=== PATIENT | female | born 1960 | race Two or more races ===

== ENCOUNTER 2020-07-04 15:46 | Outpatient (REF) | payer OTHER, SELFPAY ==
--- NOTE | 2020-07-04 | US_ITS ---
EXAMINATION: US RETROPERITONEAL LIMITED (RENAL ONLY) CLINICAL INFORMATION: Abnormal kidney function tests. COMPARISON: None TECHNIQUE: Grayscale and Doppler images of the right and left kidney were obtained. FINDINGS: RIGHT KIDNEY: 14.2 x 4.6 x 5.8 cm (SAG x AP x TRV). The kidney is normal in size, contour, and echogenicity. Renal cortical thickness is normal. No hydronephrosis or nephrolithiasis. Simple-appearing midpole parapelvic cyst measuring 2.0 cm. LEFT KIDNEY: 13.4 x 4.1 x 4.4 cm (SAG x AP x TRV). The kidney is normal in size, contour, and echogenicity. Renal cortical thickness is normal. No calculi or focal parenchymal lesions. No hydronephrosis. US/US renal BI IMPRESSION: No hydronephrosis or nephrolithiasis. Simple right midpole renal cyst measuring 2.0 cm. No additional renal parenchymal lesion.
== END 2020-07-04 15:47 | disposition home or self-care (01) ==
LOC: HO.US 15:46
PROVIDERS: Visit Provider Internal Medicine
DX: R94.4 Abnormal results of kidney function studies (principal)
CPT/HCPCS: 76775

== ENCOUNTER 2020-09-09 09:45 | Outpatient (REF) | payer OTHER, SELFPAY ==
[2020-09-09 11:07] LABS: Estimated Average Glucose 160 mg/dL; Hemoglobin A1c % 7.2 %
[2020-09-09 11:31] LABS: Alanine Aminotransferase 23 U/L (0-31); Albumin Level 4.2 g/dL (3.5-5.0); Alkaline Phosphatase 83 U/L (39-117); Anion Gap 14 (12-20); Aspartate Amino Transferase 18 U/L (5-31); Bilirubin Direct 0.7 mg/dL (0.0-0.5); Blood Urea Nitrogen 21 mg/dL (9-16); Calcium 8.9 mg/dL (8.4-10.2); Carbon Dioxide 26 mmol/L (22-29); Chloride 104 mmol/L (96-108); Cholesterol 124 mg/dL; Estimated Glomerular Filt Rate > 60; Glucose Random 202 mg/dL (60-115); HDL Cholesterol 51 mg/dL; LDL Cholesterol Calculated 65 mg/dl; Potassium 4.7 mmol/L (3.3-5.1); Sodium 139 mmol/L (135-145); Total Protein 6.7 g/dL (6.5-8.0); Triglycerides 44 mg/dL
[2020-09-09 11:50] LABS: Vitamin D 25-OH Total 13.2 ng/mL (>30)
== END 2020-09-09 09:46 | disposition home or self-care (01) ==
LOC: HO.LAB 09:45
PROVIDERS: PCP Student in an Organized Health Care Education/Training Program; Visit Provider Student in an Organized Health Care Education/Training Program
DX: E11.9 Type 2 diabetes mellitus without complications (principal); E55.9 Vitamin D deficiency, unspecified
CPT/HCPCS: 36415; 80048; 80061; 80076; 82306; 83036

== ENCOUNTER 2020-10-26 15:40 | Outpatient (REF) | payer OTHER, SELFPAY ==
--- NOTE | ~2020-10-26 | MM_ITS ---
EXAMINATION: MM SCREENING DIGITAL BREAST TOMOSYNTHESIS, BILATERAL CLINICAL INFORMATION: Screening. Asymptomatic. The lifetime risk of breast cancer based on the Tyrer-Cuzick Model is 5.4%. COMPARISON: Mammography: November 10, 2017 and December 17, 2011 TECHNIQUE: Digital breast tomosynthesis is performed in both the craniocaudal and mediolateral oblique views along with computer-aided detection (CAD). Synthesized 2D images are generated from the tomosynthesis. FINDINGS: The breasts are extremely dense, which lowers the sensitivity of mammography (ACR BI-RADS breast composition Category d). There are no significant masses, abnormal calcifications, or other abnormalities. MM/MM tomosynthesis screening BI IMPRESSION: There are no significant changes from prior study. ASSESSMENT: BI-RADS 1: Negative RECOMMENDATION: Routine annual mammography screening. This patient's information was entered into a reminder system with a target due date for their next mammogram.
== END 2020-10-26 15:41 | disposition home or self-care (01) ==
LOC: HO.MAMMO 15:40
PROVIDERS: Visit Provider Student in an Organized Health Care Education/Training Program
DX: Z12.31 Encounter for screening mammogram for malignant neoplasm of breast (principal)
CPT/HCPCS: 77063; 77067

== ENCOUNTER 2022-01-28 16:48 | Outpatient (REF) | payer MEDICAID, SELFPAY ==
--- NOTE | ~2022-01-28 | XR_ITS ---
EXAMINATION: XR FOOT, RIGHT CLINICAL INFORMATION: Foot injury. COMPARISON: None TECHNIQUE: AP, lateral, and oblique views of the right foot. FINDINGS: There is moderate soft tissue swelling fifth MTP joint and dorsal proximal foot. No bony erosive changes, fracture or dislocation. The rest of the foot is unremarkable. The ankle mortise and subtalar joints are normal. There are small calcaneal heel and moderate retrocalcaneal enthesophytes. XR/XR foot RT min 3V IMPRESSION: Moderate soft tissue swelling lateral fifth MTP joint and dorsal proximal foot. No acute fracture or bony erosive changes. Small calcaneal heel and moderate retrocalcaneal enthesophytes.
== END 2022-01-28 16:49 | disposition home or self-care (01) ==
LOC: HO.XRAY 16:48
PROVIDERS: PCP Student in an Organized Health Care Education/Training Program; Visit Provider Internal Medicine
DX: M79.671 Pain in right foot (principal)
CPT/HCPCS: 73630

== ENCOUNTER 2022-06-11 14:28 | Outpatient (REF) | payer MEDICAID, SELFPAY ==
--- NOTE | ~2022-06-11 | XR_ITS ---
EXAMINATION: XR HIP, LEFT CLINICAL INFORMATION: Left hip pain. COMPARISON: None TECHNIQUE: Frontal view pelvis is performed along with AP and frog-lateral projections left hip. FINDINGS: There are degenerative disc changes lower lumbar spine with disc narrowing and vertebral spurring L3-S1. There are mild degenerative changes SI joints and mild osteitis pubis. Bony pelvis shows no fracture or destructive process. The right hip has 3 screws and there are degenerative changes right hip with spurring acetabular rim and base femoral head. Left hip shows no fracture, dislocation, destructive process. No definite joint narrowing and no visible erosive change or chondrocalcinosis. There is a benign-appearing sclerotic lesion femoral neck possibly bone island or old enchondroma. XR/XR hip LT w PEL1V IMPRESSION: -Left hip: No definite joint narrowing or erosive change. -Benign-appearing sclerotic lesion left femoral neck possibly bone island or old enchondroma. -Degenerative disc changes lower lumbar spine. Mild osteitis pubis.
== END 2022-06-11 14:29 | disposition home or self-care (01) ==
LOC: HO.XRAY 14:28
PROVIDERS: PCP Internal Medicine; Visit Provider Internal Medicine
DX: M25.552 Pain in left hip (principal)
CPT/HCPCS: 73502

== ENCOUNTER 2023-03-20 10:42 | Outpatient (REF) | payer MEDICAID, SELFPAY ==
[2023-03-20 14:55] LABS: Vitamin D 25-OH Total 27.2 ng/mL (>30)
[2023-03-20 15:03] LABS: Anion Gap 12 (12-20)
[2023-03-20 15:08] LABS: Alanine Aminotransferase 25 U/L (0-31); Albumin Level 4.2 g/dL (3.5-5.0); Alkaline Phosphatase 103 U/L (39-117); Aspartate Amino Transferase 17 U/L (5-31); Bilirubin Direct 0.5 mg/dL (0.0-0.5); Bilirubin Total 1.6 mg/dL (0.0-1.0); Blood Urea Nitrogen 13 mg/dL (9-16); Calcium 9.6 mg/dL (8.4-10.2); Carbon Dioxide 28 mmol/L (22-29); Chloride 105 mmol/L (96-108); Cholesterol 126 mg/dL (<200); Estimated Glomerular Filt Rate > 60; Glucose Fasting 138 mg/dL (60-99); HDL Cholesterol 37 mg/dL (>40); LDL Cholesterol Calculated 67 mg/dL (<100); Potassium 4.9 mmol/L (3.3-5.1); Sodium 140 mmol/L (135-145); Total Protein 7.1 g/dL (6.5-8.0); Triglycerides 111 mg/dL (<150)
[2023-03-20 15:18] LABS: Microalbum/Creatinine Ratio Ur 10.8 ug/mg cr (<30)
== END 2023-03-20 10:43 | disposition home or self-care (01) ==
LOC: HO.CHCLDS 10:42
PROVIDERS: Visit Provider Student in an Organized Health Care Education/Training Program
DX: E11.9 Type 2 diabetes mellitus without complications (principal); E55.9 Vitamin D deficiency, unspecified
CPT/HCPCS: 36415; 80048; 80061; 80076; 82043; 82306; 82570

== ENCOUNTER 2023-12-08 12:08 | Outpatient (REF) | payer MEDICARE, MEDICAID, SELFPAY ==
[2023-12-08 15:57] LABS: Uric Acid 5.9 mg/dL (2.4-5.7)
[2023-12-08 16:06] LABS: TSH reflex Free T4 1.19 uIU/mL (0.32-4.0); Vitamin D 25-OH Total 33.9 ng/mL (>30)
[2023-12-08 16:21] LABS: Folate 11.1 ng/mL (> or = 4.0); Vitamin B12 511 pg/mL (200-900)
== END 2023-12-08 12:09 | disposition home or self-care (01) ==
LOC: HO.HHCL 12:08
PROVIDERS: Visit Provider Student in an Organized Health Care Education/Training Program
DX: L63.9 Alopecia areata, unspecified (principal); M25.572 Pain in left ankle and joints of left foot
CPT/HCPCS: 36415; 82306; 82607; 82746; 84443; 84550

== ENCOUNTER 2023-12-08 12:48 | Outpatient (REF) | payer OTHER, MEDICAID, SELFPAY ==
--- NOTE | ~2023-12-08 | XR_ITS ---
EXAMINATION: XR ANKLE, RIGHT CLINICAL INFORMATION: Right ankle pain COMPARISON: X-ray right foot on 01/28/2022 TECHNIQUE: AP, lateral, and mortise views of the right ankle. FINDINGS: BONES: Bony structures are intact. Small dorsal calcaneal spur is present. There is no focal bone destruction or periosteal reaction seen. JOINTS: Alignment of joints is normal. SOFT TISSUE: Soft tissue is normal. No radiopaque foreign body or abnormal air collection is seen. XR/XR ankle RT min 3V IMPRESSION: 1. Unchanged small dorsal calcaneal spur. 2. No fracture or dislocation or signs of osteomyelitis are found.
== END 2023-12-08 12:49 | disposition home or self-care (01) ==
LOC: HO.HMGCX 12:48
PROVIDERS: PCP Student in an Organized Health Care Education/Training Program; Visit Provider Student in an Organized Health Care Education/Training Program
DX: M25.571 Pain in right ankle and joints of right foot (principal)
CPT/HCPCS: 73610

== ENCOUNTER 2024-05-20 08:54 | Outpatient (REF) | payer MEDICARE, MEDICAID, SELFPAY | END 2024-05-20 08:55 | disposition home or self-care (01) | LOC: HO.HOSX 08:54 | PROVIDERS: Visit Provider Physician Assistant | DX: Z13.89 Encounter for screening for other disorder (principal) ==

== ENCOUNTER 2025-05-16 14:26 | Outpatient (REF) | payer OTHER, SELFPAY ==
--- OUTSIDE RECORDS SUMMARY | 2024-09-28 09:00 | XMS_ITS ---
Author Organization [facility] Address [address] [facility] [place] [address] Care Team Providers Care Learning And Development Officer Name Role Phone Amanda Le Primary Care Provider Michelle Galvez [phone] Medications Medication SIG (Take, Route, Fr equency, Duration) Notes Start Date End Date Status Losartan Potassium A ctive Glimepiride Active Atorvastatin Calcium Active Lantus Active Trulicity Active Gabapentin Active metFORMIN HCl Active Encounters Encounter Location Date Provider Diagnosis [address] [address] 09/28/2024 Michelle Pedro Plan Of Treatment No Information Progress Notes * Long CHANELOB:1960 (64 yo F)Acc No.[id number]:09/28/2024 Progress Notes Patient: Vipul PATDemetrius Geovanna Provider: Bunny Pedro DPM :1960 A ge:63 Y S ex:Female Date:09/28/2024 Address:[address], [place], [id number] Pcp:Amanda Le Subjective: * Chief Complaints: * * Medical History: D iabetic, Joint implants/screws. * Surgical History: h ip sx 2003. * Medications: T aking Lantus , Taking Trulicity , Taking Losartan Potassium , Taking Glimepiride , Taking Atorvastatin Calcium , Taking Gabapentin , Taking metFORMIN HCl Objective: * Vitals: Assessment: Plan: * Treatment: * Images: * The named appointment provid er may or may not be the originator of this progress note, and it is not deemed complete until electronically signed by the appointment provider. Sign off status: Pending * Provider: Bunny Pedro DPM Date: 0 09/28/2024 Generated for Herbert Stephenson/Zaira on: 1 07/17/2024 08:51 PM EST
[2025-05-16 19:06] LABS: Leukocytes Stool Qualitative NEGATIVE (NEGATIVE)
--- OUTSIDE RECORDS SUMMARY | 2025-05-16 20:51 | XMS_ITS | Encounter Summary ---
Author Organization [employer] Address [address] [place] [address] [address] [place] [address] Care Team Providers Care Dungeon Master Name Role Phone Amanda Le MD Primary Care Provider [phone] Adore Oleary CNP Primary Care Provider [phone] Reason for Visit * Reason Onset Date Comments Nurse Triage 03/02/2024 Encounter Details Date Type Department Care Team ([facility] [address] Contact Info) Description 03/02/2024 Telephone [facility] [address] [place], [place] [phone] Amanda Le MD [address] [place], [place] [phone] Nurse Triage Social History Tobacco Use Types Packs/Day Years Used Date Smoking Tobacco: Never Smokeless Tobacco: Never Alcohol Use Standard Drinks/Week Comments Never 0 (1 standard drink = 0.6 oz pur e alcohol) Depression Answer Date Recorded Patient Health Questionnaire-9 Score 0 06/11/2022 Housing Stability Answer Date Recorded What is your housing situation today? I have darrel alcantar 11/10/[address] you li ve. Do you have problems with any of the following? None of the above 11/10/2023 Food Insecurity Answer Date Recorded Within the past 12 months, y ou worried that your food would run out before you got money to buy more: Never True 11/10/2023 Within the past 12 months,th e food you bought just didn't last and you didn't have enough money to get more: Never True 03/2024 Transportation Answer Date Recorded In the past 12 months, has l ack of transportation kept you from medical appts, meetings, work or from getting things needed for daily living? No 11/10/2023 Utilities Answer Date Recorded In the past 12 months, has t he electric, gas, oil or water company threatened to shut off services in your home? No 11/10/2023 Depression Answer Date Recorded Patient Health Questionnaire-2 Score 0 06/11/2022 Comments Unknown Sex and Gender Information Value Date Recorded Sex Assigned at Female 04/01/2022 10:22 AM EDT Legal Sex Female 10:22 AM EDT Gender Identity Female 04/01/2022 10:22 AM EDT Sexual Orientation Straight 04/01/2022 10 :22 AM EDT documented as of this encounter Miscellaneous Notes * Telephone Encounter - Kelsi Rucker RN - 03/02/2024 12:35 PM EDT Triage call with Ellis Foil Spooler ID [id number]. Pt daughter , Zeenat, dhaval, (HIPAA) no need forinterpreter. Foil Spooler is let go and new call to Pt is returned. Pt daughter reports that Pt hashad an odd skin miguel above wrist area, left forearm. Skin area described as several small spots that have been there for week or so. Connell are not itchy or painful, smooth to touch and looks like dried blood but, it isn't. Denies that it is a bruise or injury. Daughter is requesting for PCP to see Pt. ASK apt with PCP 03/05/24 @ 845am. Insurance is verified as active prior to booking. Daughteragrees with disposition. Protocol Used: Skin Lesion - Moles or Growths (Adult) Protocol-Based Disposition: See in Office or Video Visit within 3 Days Video visit not offered Positive Triage Question: * Patient wants to be seen * All higher-acuity triage questions were negative Care Advice Discussed: * Reasons To Call Back - Fever or pain occurs - Any change in a skin growth or mole - You become worse * Telephone Encounter - Becky Turner - 03/02/2024 12:14 PM EDT Symptom: Skin Spot Outcome: Schedule an appointment to be seen within 3 days Reason: Caller denied all higher acuity questions The caller accepted this outcome. documented in this encounter Plan of Treatment Not on file documented as of this encounter Visit Diagnoses Not on filedocumented in this encounter Additional Health Concerns Assessment Noted Time PHQ-9 Depression Total Score: 0 06/11/19 23 1:43 PM EST documented as of this encounter Care Teams Dungeon Master Relationship Specialty Start Date End Date Amanda Le MD [address] [place] [phone] PCP - General Family Medicine 11/02/19 03/28/25 Adore Oleary CNP [address] [place] [id number] PCP - General Family Medicine 03/29/25 documented as of this encounter
--- OUTSIDE RECORDS SUMMARY | 2025-05-16 20:51 | XMS_ITS | Encounter Summary ---
Author Organization [employer] Address [address] [place] [address] [address] [place] [address] Care Team Providers Care Shoemaking Cutter Name Role Phone Amanda Le MD Primary Care Provider Adore Oleary CNP Primary Care Provider [phone] Reason for Visit * Reason Comments Med Refill Encounter Details Date Type Department Care Team ([facility] st Contact Info) Description 12/09/2023 Refill [facility] [address] [place], [place] [phone] Amanda Le MD [address] [place] [address] Type 2 diabetes mellitus with hyperglycemia, without long-term current use of insulin ([facility]); Type 2 diabetes mellitus without complication, without long-term current use of insulin ([facility]) Social History Tobacco Use Types Packs/Day Years [...] AM EDT documented as of this encounter Plan of Treatment Not on file documented as of this encounter Visit Diagnoses Diagnosis Type 2 diabetes mellitus with hyperglycemia, without long-term current use of insulin (HCC) Type 2 diabetes mellitus without complication, without long-term current use of insulin (HCC) documented in this encounter Additional Health Concerns Assessment Noted Time PHQ-9 Depression Total Score: 0 06/11/19 23 1:43 PM EST documented as of this encounter Care Teams Shoemaking Cutter Relationship Specialty Start Date End Date Amanda Le MD [address] [place] [phone] PCP - General Family Medicine 11/02/19 03/28/25 Adore Oleary CNP [address] [place] [address] PCP - General Family Medicine 03/29/25 documented as of this encounter
--- OUTSIDE RECORDS SUMMARY | 2025-05-16 20:51 | XMS_ITS ---
Author Name Sarina Avila NP Address [address] [place] [address] Phone [phone] Organization [facility] Care Team Providers Care Manager Compliance Name Role Phone Sarina Avila Unavailable [phone] Unavailable Unavailable [phone] NIRAV OLEA Unavailable [phone] Reason for Referral Not Available Allergies, adverse reactions, alerts Allergen Type Reaction Severity Status Onset Date Lisinopril Allergy to substance (disorder) Cough Unknown Active N/A History of medication use Medication Class Instructions Start Date End Date Trulicity 3 mg/0.5ML Solution Pen-injector INJECT ONE PEN (=3MG) SUBCUTANEOUSLY ONCE A WEEK 2022-07-02 No Data Available metFORMIN 1000 mg Tab TAKE 1 TABLET BY M OUTH WITH BREAKFAST AND WITH EVENING MEAL 2022-06-28 2023-05-15 Lantus SoloStar 100 UNIT/ML Solution Pen-injector INJECT 50 UNIT BY SUBCUTANEOUS ROUTE EVERY BEDTIME 2022-03-15 No Data Available FREESTYLE LITE TEST STRIP CHECK BLOOD PADGETT GAR ONCE EVERY DAY 2022-07-31 No Data Available BD UF ORIG PEN NDL 12.3NEX17O USE 1 NEEDLE DAILY 2022-07-29 No Data Available Gabapentin 100 mg Cap TAKE 1 CAPSULE BY MOUTH EVERY DAY 2022-12-25 No Data Available MELATONIN 5 MG TABLET TAKE 1 TABLET BY M OUTH AT BEDTIME 2023-01-25 2023-05-15 Atorvastatin Calcium 40 mg Tab TAKE 1 TABLET BY MOUTH EVERY DAY 2022-12-05 No Data Available Diclofenac Sodium 1 % Gel APPLY TOPICALL Y TWICE A DAY NEEDED FOR PAIN 2023-03-04 No Data Available FREESTYLE 28G LANCETS USE EVERY MORNING DIRECTED 2022-09-02 No Data Available Glimepiride 4 mg Tab TAKE 1 TABLET BY MO UTH TWICE A DAY 2022-06-28 No Data Available Diclofenac Sodium 1 % Gel 4 grams topica lly to affected area 4 times per day PRN 2023-05-13 2025-03-22 metFORMIN 1000 mg Tab 1 tablet orally twice daily 2022 No Data Available Lisinopril 20 mg Tab Take 1 tablet orally daily 2022-06-2025-03-22 Ibuprofen 200 mg Tab Take 3 tab q8h PRN for pain 05-15 No Data Available FreeStyle Obie 2 Plus Sensor Miscellaneous 1 EACH EVERY 14 (FOURTEEN) DAYS. 2024-10-05 No Data Available Losartan Potassium 25 mg Tab TAKE 1 TABL ET (25 MG) BY MOUTH ONCE PER DAY. 2024-08-20 No Data Available traZODone 50 mg Tab TAKE 1 TABLET BY BERNARD TH AT BEDTIME 2024-08-20 2025-03-22 Allopurinol 100 mg Tab TAKE 1 TABLET BY MOUTH ONCE DAILY 2024-11-29 2025-03-22 Amoxicillin 250 mg Cap TAKE 1 CAPSULE EV SAVAGE 8 HOURS UNTIL FINISHED 2025-02-19 No Data Available Embecta Pen Needle Ultrafine 29G X 12.7MM Miscellaneous USE 1 NEEDLE DAILY 2024-11-09 No Data Avail able Problem List Problem Status Onset Date Resolved Date Synopsis Solitary pulmonary nodule Active 2023-05-13 2025-03-22 Continue routine follow up for surveillance Vitamin D deficiency Active 2023-05-13 N/A Has taken vitamin D supplementation in the pastNot taking currentlyContinue routine follow up HTN (hypertension) Active 2023-05-15 N/A Taking losartanBP monitoring at home: YesFollows with cardiology: No Recommend medication compliance, heart healthy diet, monitor blood pressure routinely and notify provider with any high or low readings. Recommend to not smoke. Other problems related to medical facilities and other health care Active 2023-11-27 N/A DM CONT INGENCY PLANMember to call for the following symptoms: Blood sugar <70/ Blood sugar >300/ More thirsty than usual/ Urinating more than usual/ Confusion or change in behavior/ Increased redness of wound/ Wound smells different/ Chest painPlanned intervention: Encourage adequate water intake/ Elevate legs/ Limit high-sugar and high-carbohydrate foods/ Go for a walk. Type 2 diabetes mellitus with hyperlipidemia, Type 2 diabetes mellitus with diabetic neuropathy Active 2023-05-13 N/A Taking glime piride, lantus, metformin, trulicityStatin: atorvastatin Neuropathy: gabapentinRecent HgA1c 6.5 on 11/26/23 with PCP. HbA1c 6.9 noted on 07/29/2024 in outside CareFollows with PCP Bilateral shoulder pain Active 2023-05-15 N/A U sed to receive corticosteroid injections but it caused spikes in her blood sugar so she stopped. Difficulty with mobility raising arms above head. Stable. Follow-up ortho Cervical cancer screening declined Active 2023-11-27 N/A 2019, pt decl ined ref, educated. Recommended Papsmear - patient will follow-up with a photographic platemaker Insomnia Active 2025-03-22 N/A No meds at thi s time. Trial of trazodone but too strong and gave her a headache. Screening for breast cancer Active 2025-03-22 N/A Needs referral f or mammogram. Mammogram ordered. [address] [place] [id number] Screening for colon cancer Active 2025-03-22 N/A Due for colonosc opy. Needs referral for colonoscopy. Encounters Encounters Type Facility Date of Service Diagnosis/Co mplaint New patient, 30-44min 1 stable chronic or 2 minor; add modifier 95 for video, modifier 93 for phone [facility], ([place]) 05/15/2023 Type 2 diabetes mellitus wit h diabetic neuropathy, unspecifiedType 2 diabetes mellitus with other specified complicationHyperlipidemia, unspecifiedSolitary pulmonary noduleVitamin D deficiency, unspecifiedEssential (primary) hypertensionPain in right shoulderPain in left shoulder New patient, 30-44min 1 stable chronic or 2 minor; add modifier 95 for video, modifier 93 for phone [facility], [place] 05/15/2023 New patient, 30-44min 1 stable chronic or 2 minor; add modifier 95 for video, modifier 93 for phone [facility], [place] 05/15/2023 New patient, 30-44min 1 stable chronic or 2 minor; add modifier 95 for video, modifier 93 for phone [facility], [place] 05/15/2023 New patient, 30-44min 1 stable chronic or 2 minor; add modifier 95 for video, modifier 93 for phone [facility], [place] 05/15/2023 New patient, 30-44min 1 stable chronic or 2 minor; add modifier 95 for video, modifier 93 for phone [facility], [place]) 05/15/2023 New patient, 30-44min 1 stable chronic or 2 minor; add modifier 95 for video, modifier 93 for phone [facility] ([place]) 05/15/2023 Estab. patient 30-39min; chronic exacerbation, 2 stable chronic or 1 acute illness add add modifier 95 for video, (do not use for phone, instead use [id number]) [facility], [place]) 11/27/2023 Solitary pulmonary noduleTyp e 2 diabetes mellitus with other specified complicationHyperlipidemia, unspecifiedVitamin D deficiency, unspecifiedType 2 diabetes mellitus with diabetic neuropathy, unspecifiedOther problems related to medical facilities and other health careLong term (current) use of oral hypoglycemic drugsLong term (current) use of insulinEssential (primary) hypertensionPain in right shoulderPain in left shoulderOther specified counseling Estab. patient 30-39min; chronic exacerbation, 2 stable chronic or 1 acute illness add add modifier 95 for video, (do not use for phone, instead use [id number]) [facility], [place] 11/27/2023 Estab. patient 30-39min; chronic exacerbation, 2 stable chronic or 1 acute illness add add modifier 95 for video, (do not use for phone, instead use [id number]) [facility] ([place]) 11/27/2023 Estab. patient 30-39min; chronic exacerbation, 2 stable chronic or 1 acute illness add add modifier 95 for video, (do not use for phone, instead use [id number]) [facility], [place] 11/27/2023 Estab. patient 30-39min; chronic exacerbation, 2 stable chronic or 1 acute illness add add modifier 95 for video, (do not use for phone, instead use [id number]) [facility] ([place]) 11/27/2023 Estab. patient 30-39min; chronic exacerbation, 2 stable chronic or 1 acute illness add add modifier 95 for video, (do not use for phone, instead use [id number]) [facility], [place] 11/27/2023 Estab. patient 30-39min; chronic exacerbation, 2 stable chronic or 1 acute illness add add modifier 95 for video, (do not use for phone, instead use [id number]) [facility], ([place]) 11/27/2023 Estab. patient 30-39min; chronic exacerbation, 2 stable chronic or 1 acute illness add add modifier 95 for video, (do not use for phone, instead use [id number]) [facility], ([place]) 11/27/2023 Estab. patient 30-39min; chronic exacerbation, 2 stable chronic or 1 acute illness add add modifier 95 for video, (do not use for phone, instead use [id number]) [facility], ([place] 11/27/2023 Estab. patient 30-39min; chronic exacerbation, 2 stable chronic or 1 acute illness add add modifier 95 for video, (do not use for phone, instead use [id number]) [facility], ([place] 11/27/2023 Estab. patient 30-39min; chronic exacerbation, 2 stable chronic or 1 acute illness add add modifier 95 for video, (do not use for phone, instead use [id number]) [facility], ([place] 11/27/2023 Estab. patient 10-29min; 1 minor problem; add add modifier 95 for video, modifier 93 for phone [facility], [place] 03/22/2025 Type 2 diabetes mellitus wit h diabetic neuropathy, unspecifiedType 2 diabetes mellitus with other specified complicationHyperlipidemia, unspecifiedVitamin D deficiency, unspecifiedEssential (primary) hypertensionPain in right shoulderPain in left shoulderInsomnia, unspecifiedSolitary pulmonary noduleProc/trtmt not crd out bec pt decision for unsp reasonsOther problems related to medical facilities and other health careOther specified counselingLong term (current) use of oral hypoglycemic drugsLong term (current) use of insulin Estab. patient 10-29min; 1 minor problem; add add modifier 95 for video, modifier 93 for phone [facility], [place] 03/22/2025 Estab. patient 10-29min; 1 minor problem; add add modifier 95 for video, modifier 93 for phone [facility], [place] 03/22/2025 Estab. patient 10-29min; 1 minor problem; add add modifier 95 for video, modifier 93 for phone [facility], ([place] 03[place]22/20[place] Estab. patient 10-29min; 1 minor problem; add add modifier 95 for video, modifier 93 for phone [facility], [place] 03/22/20[place] Estab. patient 10-29min; 1 minor problem; add add modifier 95 for video, modifier 93 for phone [facility], [place] 03/22/2025 Estab. patient 10-29min; 1 minor problem; add add modifier 95 for video, modifier 93 for phone [facility], [place] 03/22/20[place] Estab. patient 10-29min; 1 minor problem; add add modifier 95 for video, modifier 93 for phone [facility], [place] 03/22/2025 Estab. patient 10-29min; 1 minor problem; add add modifier 95 for video, modifier 93 for phone [facility], ([place] 03/22/2025 Estab. patient 10-29min; 1 minor problem; add add modifier 95 for video, modifier 93 for phone [facility], ([place] 03/22/2025 Unlisted special service; to be used for medical record reviews and reporting CPTII codes (1111F, etc) [facility] ([place]) 04/07/2025 Other specified counseling Unlisted special service; to be used for medical record reviews and reporting CPTII codes (1111F, etc) [facility], ([place] 04/07/2025 Unlisted special service; to be used for medical record reviews and reporting CPTII codes (1111F, etc) [facility], ([place] 04/07/2025 Vital Signs Date of Collection Vitals 2023-05-15 09:08:23 Height - 175.26 cmWe ight - 92.99 kgBody Mass Index (BMI) - 30.27 kg/m2Pain Scale - 0.0 {score} 2023-11-27 13:12:36 Weight - 98.43 kgBod y Mass Index (BMI) - 32.05 kg/m2BP Diastolic - 74.0 mm[Hg]BP Systolic - 134.0 mm[Hg]Pain Scale - 0.0 {score} 2025-03-22 06:50:56 Height - 175.26 cmWe ight - 92.08 kgBody Mass Index (BMI) - 29.98 kg/m2BP Diastolic - 75.0 mm[Hg]BP Systolic - 127.0 mm[Hg]Pain Scale - 9.0 {score} Social History Social History Social History Observation Description Effec tive Time Current Smoking Status Never smoker 2025-05-02 7 Sex Female History of Procedures Procedures Service Procedure code Service date Servicing provider Phone# New patient, 30-44min 1 stable chronic or 2 minor; add modifier 95 for video, modifier 93 for phone [id number] 2023-05-15 No Data Available No Data Available Advance care planning discussed and documented advance care plan or surrogate decision-maker was documented in the medical record. (1123F) 1123F 2023-05-15 No Data Available No Data Availa ble Functional Status Assessed (1170F) 1170F 2023-05-15 No Data Available No Data Avail able Medication List Documented (1159F) 1159F 2023-05-15 No Data Available No Data Odalys ilable Medication Review by prescribing provider or pharmacist documented (1160F) 1160F 2023-05-15 No Data Available No Data Odalys ilable BMI obtained (3008F) 3008F 2023-05-15 No Data Availab le No Data Available Pain Assessment - NO pain present (1126F) 1126F 2023-05-15 No Data Available No Data A vailable Estab. patient 30-39min; chronic exacerbation, 2 stable chronic or 1 acute illness add add modifier 95 for video, (do not use for phone, instead use [id number]) 55144 2023-11-27 No Data Available No Data Availa ble Medication List Documented (1159F) 1159F 2023-11-27 No Data Available No Data Odalys ilable Medication Review by prescribing provider or pharmacist documented (1160F) 1160F 2023-11-27 No Data Available No Data Odalys ilable Pain Assessment - NO pain present (1126F) 1126F 2023-11-27 No Data Available No Data A vailable BMI obtained (3008F) 3008F 2023-11-27 No Data Availab le No Data Available Advance Care Directive Advance care planning discussion documented in the medical record (1158F) 1158F 2023-11-27 No Data Available No Data Availa ble Advance care planning discussed and documented in the medical record beneficiary/patient did not wish to or was unable to provide an advance care plan or name a surrogate decision-maker. (1124F) 1124F 2023-11-27 No Data Available No Data Availa ble SBP 130-139 (3075F) 3075F 2023-11-27 No Data Availabl e No Data Available DBP <80 (3078F) 3078F 2023-11-27 No Data Available No Data Available Most recent A1c (HbA1c) or GMI level <7% (3044F) 3044F 2023-11-27 No Data Available No Data Availa ble Functional Status Assessed (1170F) 1170F 2023-11-27 No Data Available No Data Avail able Estab. patient 10-29min; 1 minor problem; add add modifier 95 for video, modifier 93 for phone [id number] 2025-03-22 No Data Available No Data Availa ble Medication List Documented (1159F) 1159F 2025-03-22 No Data Available No Data Odalys ilable Medication Review by prescribing provider or pharmacist documented (1160F) 1160F 2025-03-22 No Data Available No Data Odalys ilable Functional Status Assessed (1170F) 1170F 2025-03-22 No Data Available No Data Avail able Advance Care Directive Advance care planning discussion documented in the medical record (1158F) 1158F 2025-03-22 No Data Available No Data Availa ble Advance care planning discussed and documented advance care plan or surrogate decision-maker was documented in the medical record. (1123F) 1123F 2025-03-22 No Data Available No Data Availa ble Pain Assessment - Pain Documented on a Pain Scale (1125F) 1125F 2025-03-22 No Data Available No Data Odalys ilable Most recent A1c (HbA1c) or GMI level <7% (3044F) 3044F 2025-03-22 No Data Available No Data Availa ble SBP < 130 (3074F) 3074F 2025-03-22 No Data Available No Data Available DBP <80 (3078F) 3078F 2025-03-22 No Data Available No Data Available Unlisted special service; to be used for medical record reviews and reporting CPTII codes (1111F, etc) 27769 2025-04-07 No Data Available No Data Availa ble SBP 130-139 (3075F) 3075F 2025-04-07 No Data Availabl e No Data Available DBP 80-89 (3079F) 3079F 2025-04-07 No Data Available No Data Available Functional Status Functional Category Effective Dates Cognition Status: Oriented to Person, Pl shona and Time 2023-05-15 ADL: Bathing Needs Assistanc e , Dressing Needs Assistance , Eating Independent , Ambulation Independent , Transferring Independent and Toileting Independent 2023-05-15 IADL: Medication Needs Kofi tance , Meal Prep Needs Assistance , Shopping Needs Assistance , Driving or Public Transport Needs Assistance and Housework Needs Assistance 2023-05-15 Falls in last 6 Months: No 2023-05-15 DME: Cane 2023-05-15 Mental Status No Information Assessments Date of Service Assessments 2023-05-15 09:08:23 Solitary pulmonary n oduleDyslipidemia associated with type 2 diabetes mellitusVitamin D deficiencyHTN (hypertension)Diabetic neuropathyBilateral shoulder pain 2023-11-27 13:12:36 Solitary pulmonary n oduleContinue routine follow up for surveillanceDyslipidemia associated with type 2 diabetes mellitusTaking glimepiride, lantus, metformin, trulicityStatin: atorvastatin SHONA/ARB: not takingRecent HgA1c 6.5 on 11/26/23 with PCP. Last A1C: 7.4 03/04/23Last GFR: >60 03/20/2023 Outside careLast uACR: 10.8 03/20/2023 Outside careLast lipid panel: 03/20/2023Follows with PCPDoes check glucose at home 2x dailyRecommend medication compliance, healthy weight/BMI, routine exercise as able. Recommend to follow low carb heart-healthy diet diet low in trans fats(often found in pre-packaged food i.e. cookies, crackers) and high in soluble fiber (vegetables/fruits/legumes) and omega-3 fatty acids (salmon, mackerel, skinner, walnuts, and flaxseeds). Recommend yearly eye exams and checking feet for wounds daily. Goal blood pressure <130/80. Recommend to not smoke. If symptoms of low blood sugar (shaking, sweating) drink 6oz of fruit juice.Vitamin D deficiencyHas taken vitamin D supplementation in the pastNot taking currentlyContinue routine follow upHTN (hypertension)Taking lisinoprilBP monitoring at home: YesFollows with cardiology: No Recommend medication compliance, heart healthy diet, monitor blood pressure routinely and notify provider with any high or low readings. Recommend to not smoke.Diabetic neuropathyTakes gabapentinFollow with PCPRecommend medication compliance and routine follow up.Bilateral shoulder painHas had injections. Difficulty with mobility raising arms above head. Stable.Other problems related to medical facilities and other health careDM CONTINGENCY PLANMember to call for the following symptoms: Blood sugar <70/ Blood sugar >300/ More thirsty than usual/ Urinating more than usual/ Confusion or change in behavior/ Increased redness of wound/ Wound smells different/ Chest painPlanned intervention: Encourage adequate water intake/ Elevate legs/ Limit high-sugar and high-carbohydrate foods/ Go for a walk.Cervical cancer screening [id number], pt declined ref, educated. 2025-03-22 06:50:56 Type 2 diabetes cristian itus with hyperlipidemia, Type 2 diabetes mellitus with diabetic neuropathyOther problems related to medical facilities and other health careVitamin D deficiencyHTN (hypertension)Bilateral shoulder painInsomniaSolitary pulmonary noduleCervical cancer screening declinedScreening for breast cancerScreening for colon cancer Plan of Care Date of Service Plans 2023-05-15 09:08:23 BMI obtained (3008F) Televideo new patient, 30-44min 1 stable chronic or 2 minor; add modifier 95Medication List Documented (1159F)Advance care planning discussed and documented advance care plan or surrogate decision-maker was documented in the medical record. (1123F)Medication Review by prescribing provider or pharmacist documented (1160F)Functional Status Assessed (1170F)Pain Assessment - NO pain documented (1126F)Continue to see PCP. Follow-up with Krysten as needed for any acute or disease education needs that may arise 23/12. At least 50% of time spent counseling patient, discussing diagnosis, treatment plan, compliance, and coordinating followup care. Continue taking medications as directed and keep all follow up appointments with established PCP and any specialists.Continue routine follow up for surveillanceTaking glimepiride, lantus, metformin, trulicityStatin: atorvastatin SHONA/ARB: not takingLast A1C: 7.4 03/04/23Last GFR: >60 03/20/2023 Outside careLast uACR: 10.8 03/20/2023 Outside careLast lipid panel: 03/20/2023Follows with PCPDoes check glucose at home 2x dailyRecommend medication compliance, healthy weight/BMI, routine exercise as able. Recommend to follow low carb heart-healthy diet diet low in trans fats(often found in pre-packaged food i.e. cookies, crackers) and high in soluble fiber (vegetables/fruits/legumes) and omega-3 fatty acids (salmon, mackerel, skinner, walnuts, and flaxseeds). Recommend yearly eye exams and checking feet for wounds daily. Goal blood pressure <130/80. Recommend to not smoke. If symptoms of low blood sugar (shaking, sweating) drink 6oz of fruit juice.Has taken vitamin D supplementation in the pastNot taking currentlyContinue routine follow upTaking lisinoprilBP monitoring at home: YesFollows with cardiology: No Recommend medication compliance, heart healthy diet, monitor blood pressure routinely and notify provider with any high or low readings. Recommend to not smoke.Takes gabapentinFollow with PCPRecommend medication compliance and routine follow up.Has had injections. Difficulty with mobility raising arms above head 2023-11-27 13:12:36 Medication Review by prescribing provider or pharmacist documented (1160F)Medication List Documented (1159F)Functional Status Assessed (1170F)Advance Care Directive Advance care planning discussion documented in the medical record (1158F)BMI obtained (3008F)Televideo 30-39min; chronic exacerbation, 2 stable chronic or 1 acute illness add modifier 95SBP 130-139 (3075F)DBP <80 (3078F)Pain Assessment - NO pain documented (1126F)Most recent hemoglobin A1c (HbA1c) level <7% (3044F)Advance care planning discussed and documented in the medical record beneficiary/patient did not wish to or was unable to provide an advance care plan or name a surrogate decision-maker. (1124F)Continue to see PCP. Follow-up with [facility] as needed for any acute or disease education needs that may arise. 2025-03-22 06:50:56 Medication Review by prescribing provider or pharmacist documented (1160F)Medication List Documented (1159F)Functional Status Assessed (1170F)Advance Care Directive Advance care planning discussion documented in the medical record (1158F)SBP < 130 (3074F)DBP <80 (3078F)Advance care planning discussed and documented advance care plan or surrogate decision-maker was documented in the medical record. (1123F)Estab. patient 20-29min; 1 stable chronic or 2 minor; add add modifier 95 for video, modifier 93 for phoneMost recent A1c (HbA1c) or GMI level <7% (3044F)Pain Assessment - Pain Documented on a Pain Scale (1125F)Continue to see PCP. Follow-up with [facility] as needed for any acute or disease education needs that may arise.Taking glimepiride, lantus, metformin, trulicityStatin: atorvastatin Neuropathy: gabapentinRecent HgA1c 6.5 on 11/26/23 with PCP. HbA1c 6.9 noted on 07/29/2024 in outside CareFollows with PCPDM CONTINGENCY PLANMember to call for the following symptoms: Blood sugar <70/ Blood sugar >300/ More thirsty than usual/ Urinating more than usual/ Confusion or change in behavior/ Increased redness of wound/ Wound smells different/ Chest painPlanned intervention: Encourage adequate water intake/ Elevate legs/ Limit high-sugar and high-carbohydrate foods/ Go for a walk.Has taken vitamin D supplementation in the pastNot taking currentlyContinue routine follow upTaking losartanBP monitoring at home: YesFollows with cardiology: No Recommend medication compliance, heart healthy diet, monitor blood pressure routinely and notify provider with any high or low readings. Recommend to not smoke.Used to receive corticosteroid injections but it caused spikes in her blood sugar so she stopped. Difficulty with mobility raising arms above head. Stable. Follow-up orthoNo meds at this time. Trial of trazodone but too strong and gave her a headache.Continue routine follow up for [id number], pt declined ref, educated. Recommended [facility] - patient will follow-up with a gynNeeds referral for mammogram. Mammogram ordered. [address] [place], [place] [address]Knt for colonoscopy. Needs referral for colonoscopy. 2025-03-22 07:21:37 Mammogram Routine Sc reening 2025-04-07 13:47:44 SBP 130-139 (3075F)D BP 80-89 (3079F)
--- OUTSIDE RECORDS SUMMARY | 2025-05-16 20:51 | XMS_ITS | Encounter Summary ---
Author Organization [employer] Address [address] [place] [address] 7 [place] [address] Care Team Providers Care Game Master Name Role Phone Amanda Le MD Primary Care Provider Adore Oleary CNP Primary Care Provider [phone] Reason for Visit * Reason Comments Med Refill Encounter Details Date Type Department Care Team ([facility] Contact Info) Description 10/22/2022 Refill [facility] CHC MED & PEDS [address] [place], [place] [phone] Amanda Le MD [address] [place] [address] Type 2 diabetes mellitus with hyperglycemia, without long-term current use of insulin ([facility]) Social History Tobacco Use Types Packs/Day Years Used Date Smoking Tobacco: Never Smokeless Tobacco: Never Alcohol Use Standard Drinks/Week Comments Never 0 (1 standard drink = 0.6 oz pur e alcohol) Depression Answer Date Recorded Patient Health Questionnaire-9 Score 0 06/11/2022 Depression Answer Date Recorded Patient Health Questionnaire-2 Score 0 06/11/2022 Comments Unknown Sex and Gender Information Value Date Recorded Sex Assigned at Female 04/01/2022 10:22 AM EDT Legal Sex Female 10:22 AM EDT Gender Identity Female 04/01/2022 10:22 AM EDT Sexual Orientation Straight 04/01/2022 10 :22 AM EDT COVID-19 Exposure Response Date Recorded In the last 10 days, have yo u been in contact with someone who was confirmed or suspected to have Coronavirus/COVID-19? No / Unsure 10/03/2022 10:38 AM EDT documented as of this encounter Plan of Treatment Not on file documented as of this encounter Visit Diagnoses Diagnosis Type 2 diabetes mellitus with hyperglycemia, without long-term current use of insulin (HCC) documented in this encounter Additional Health Concerns Assessment Noted Time PHQ-9 Depression Total Score: 0 06/11/19 23 1:43 PM EST documented as of this encounter Care Teams Game Master Relationship Specialty Start Date End Date Amanda Le MD [address] [place] [address] PCP - General Family Medicine 11/02/19 03/28/25 Adore Oleary CNP [address] [place] [address] PCP - General Family Medicine 03/29/25 documented as of this encounter
--- OUTSIDE RECORDS SUMMARY | 2025-05-16 20:51 | XMS_ITS | Encounter Summary ---
Author Organization [employer] Address [address] [place] [address] 7 [place] [address] Care Team Providers Care Select Banker Name Role Phone Amanda Le MD Primary Care Provider [phone] Adore Oleary CNP Primary Care Provider [phone] Encounter Details Date Type Department Care Team ([facility] st Contact Info) Description 06/11/2022 Telephone [facility] CHC MED & PEDS [address] [place], [place] [phone] Amanda Le MD [address] [place] [address] Social History Tobacco Use Types Packs/Day Years [...] suspected to have Coronavirus/COVID-19? No / Unsure 06/11/2022 1:33 PM EST documented as of this encounter Functional Status * Over the past 2 weeks, how often have you been bothered by any of the following problems? Question Answer Date of Assessment Author Little interest or pleasure in doing things Not at all 06/11/2022 1:43 PM Smiley Shin Feeling down, depressed, or hopeless Not at all 06/11/2022 1:43 PM Smiley Shin Patient Health Questionnaire -2 Score 0 06/11/2022 1:43 PM Smiley Shin * Over the past 2 weeks, how often have you been bothered by any of the following problems? Question Answer Date of Assessment Author Trouble falling or staying a sleep, or sleeping too much Not at all 06/11/2022 1:43 PM Smiley Shin Feeling tired or having libia le energy Not at all 06/11/2022 1:43 PM Smiley Shin Poor appetite or overeating Not at all 06/11/2022 1: 43 PM Smiley Shin Feeling bad about yourself - or that you are a failure or have let yourself or your family down Not at all 06/11/2022 1:43 PM Smiley Shin Trouble concentrating on thi ngs, such as reading the newspaper or watching television Not at all 06/11/2022 1:43 PM Smiley Shin Moving or speaking so slowly that other people could have noticed? Or the opposite - being so fidgety or restless that you have been moving around a lot more than usual. Not at all 06/11/2022 1:43 PM Smiley Shin Thoughts that you would be b pete off or hurting yourself in some way Not at all 06/11/2022 1:43 PM Smiley Shin Patient Health Questionnaire -9 Score 0 06/11/2022 1:43 PM Smiley Shin documented as of this encounter Plan of Treatment Not on file documented as of this encounter Visit Diagnoses Not on filedocumented in this encounter Additional Health Concerns Assessment Noted Time PHQ-9 Depression Total Score: 0 06/11/19 23 1:43 PM EST documented as of this encounter Care Teams Select Banker Relationship Specialty Start Date End Date Amanda Le MD [address] [place] [address] PCP - General Family Medicine 11/02/19 03/28/25 Adore Oleary CNP [address] [place] [address] PCP - General Family Medicine 03/29/25 documented as of this encounter
--- OUTSIDE RECORDS SUMMARY | 2025-05-16 20:51 | XMS_ITS | Encounter Summary ---
Author Organization [employer] Address [address] [place] [address] 7 [place] [address] Care Team Providers Care Complaint Supervisor Name Role Phone Amanda Le MD Primary Care Provider [phone] Adore Oleary CNP Primary Care Provider [phone] Encounter Details Date Type Department Care Team ([facility] st Contact Info) Description 11/16/2024 Orders Only [facility] CHC MED & PEDS [address] [place], [place] [phone] Jonathan Recinos MD [address] [place] [address] Social History Tobacco Use Types Packs/Day Years Used Date Smoking Tobacco: Never Smokeless Tobacco: Never Alcohol Use Standard Drinks/Week Comments Never 0 (1 standard drink = 0.6 oz pur e alcohol) Depression Answer Date Recorded Patient Health Questionnaire-9 Score 2 07/29/2024 Patient Health Questionnaire-9 Score 2 07/29/2024 Last PHQ-9: Questionnaire Data Not on file 0 07/29/2024 Housing Stability Answer Date Recorded What is [...] Date Recorded Patient Health Questionnaire-2 Score 0 07/29/2024 Comments Unknown Sex and Gender Information Value [...] Assessment Noted Time PHQ-9 Depression Total Score: 2 07/29/19 9:02 AM EST documented as of this encounter Care Teams Complaint Supervisor Relationship Specialty Start Date End Date Amanda Le MD [address] [place] [id number] PCP - General Family Medicine 11/02/19 03/28/25 Adore Oleary CNP [address] [place] [address] PCP - General Family Medicine 03/29/25 documented as of this encounter
--- OUTSIDE RECORDS SUMMARY | 2025-05-16 20:51 | XMS_ITS | Encounter Summary ---
Author Organization [employer] Address [address] [facility] [address]t [place] [address] Care Team Providers Care Heat Engineering Teacher Name Role Phone Amanda Le MD Primary Care Provider [phone] Adore Oleary CNP Primary Care Provider [phone] Reason for Visit * Reason Onset Date Comments Medication Question 12/07/2024 Encounter Details Date Type Department Care Team ([facility] Contact Info) Description 12/07/2024 Telephone [facility]INE [address] [place] [address] Amanda Le MD [address] [place], [place] [phone] Medication Question Social History Tobacco Use Types Packs/Day Years [...] encounter Miscellaneous Notes * Telephone Encounter - Raya Masterson - 12/07/2024 9:42 AM EDT TC from daughter requesting all medications be sent out with a 60-day supply, as patient [place] of [place] and returning on January 21. She specifically requested a new prescription for gabapentin to be sent to the pharmacy, as the previous supply was not received. documented in this encounter Plan of Treatment Not on file documented as of this encounter Visit Diagnoses Not on filedocumented in this encounter Additional Health Concerns Assessment Noted Time PHQ-9 Depression Total Score: 2 07/29/19 25 9:02 AM EST documented as of this encounter Care Teams Heat Engineering Teacher Relationship Specialty Start Date End Date Amanda Le MD [address] [place] [address] PCP - General Family Medicine 11/02/19 03/28/25 Adore Oleary CNP [address] [place] [address] PCP - General Family Medicine 03/29/25 documented as of this encounter
--- OUTSIDE RECORDS SUMMARY | 2025-05-16 20:51 | XMS_ITS | Encounter Summary ---
Author Organization [employer] Address [address] [place] [address] 7t [place] [address] Care Team Providers Care Seo Consultant Name Role Phone Amanda Le MD Primary Care Provider [phone] Adore Oleary CNP Primary Care Provider [phone] Reason for Visit * Reason Comments Med Refill Encounter Details Date Type Department Care Team ([facility] Contact Info) Description 04/20/2024 Refill [facility] CHC MED & PEDS [address] [place], [place] [phone] Amanda Le MD [address] [place], [place] [phone] Social History Tobacco Use Types Packs/Day Years [...] documented as of this encounter Care Teams Seo Consultant Relationship Specialty Start Date End Date Amanda Le MD [address] [place] [address] PCP - General Family Medicine 11/02/19 03/28/25 Adore Oleary CNP [address] [place] [address] PCP - General Family Medicine 03/29/25 documented as of this encounter
--- OUTSIDE RECORDS SUMMARY | 2025-05-16 20:51 | XMS_ITS | Encounter Summary ---
Author Organization [employer] Address [address] [place] [address] [address] [place] [address] Care Team Providers Care Milling Supervisor Name Role Phone Amanda Le MD Primary Care Provider [phone] Adore Oleary CNP Primary Care Provider [phone] Reason for Visit * Reason Onset Date Comments Med Refill 12/09/2023 Encounter Details Date Type Department Care Team ([facility] Contact Info) Description 12/09/2023 Telephone [facility] MED & PEDS [address] [place], [place] [phone] Amanda Le MD [address] [place] [address] Med Refill Social History Tobacco Use Types Packs/Day Years [...] encounter Miscellaneous Notes * Telephone Encounter - Becky Turner - 12/09/2023 9:58 AM EDT TC from pt daughter requesting medication refill. Medications needing refill : gabapentin (Neurontin) 100 MG capsule atorvastatin (Lipitor) 40 MG tablet albuterol 108 (90 Base) MCG/ACT inhaler metFORMIN (Glucophage) 1000 MG tablet To be sent to: [facility]/pharmacy #[id number] Pt daughter states pt will be leaving to [place] tomorrow 12/09/23. documented in this encounter Plan of Treatment Not on file documented as of this encounter Visit Diagnoses Not on filedocumented in this encounter Additional Health Concerns Assessment Noted Time PHQ-9 Depression Total Score: 0 06/11/19 23 1:43 PM EST documented as of this encounter Care Teams Milling Supervisor Relationship Specialty Start Date End Date Amanda Le MD [address] [place] [address] PCP - General Family Medicine 11/02/19 03/28/25 Adore Oleary CNP [address] [place] [address] PCP - General Family Medicine 03/29/25 documented as of this encounter
--- OUTSIDE RECORDS SUMMARY | 2025-05-16 20:51 | XMS_ITS | Encounter Summary ---
Author Organization [employer] Address [address] [facility] 7t [place] [address] Care Team Providers Care Interline Clerk Name Role Phone Amanda Le MD Primary Care Provider [phone] Adore Oleary CNP Primary Care Provider [phone] Encounter Details Date Type Department Care Team (Late st Contact Info) Description 2023 Orders Only [facility] CHC MED & PEDS [address] [place], [place] [phone] Amanda Le MD [address] [place] [address] Social History Tobacco Use Types Packs/Day Years [...] documented as of this encounter Care Teams Interline Clerk Relationship Specialty Start Date End Date Amanda Le MD [address] [place] [address] PCP - General Family Medicine 11/02/19 03/28/25 Adore Oleary CNP [address] [place] [address] PCP - General Family Medicine 03/29/25 documented as of this encounter
--- OUTSIDE RECORDS SUMMARY | 2025-05-16 20:51 | XMS_ITS | Clinical Summary ---
Author Organization [employer] Address [address] [facility] 7[address] [place] [address] Care Team Providers Care Benzol Still Operator Name Role Phone Adore Oleary COREY Primary Care Provider [phone] Allergies No known active allergies Medications multivitamin (Theragran) tablet Take 1 tablet by mouth 1 (one) time each day. 020 Active melatonin 5 MG tablet TAKE 1 TABLET BY MOUTH AT BEDTIME 90 tablet 1 023 Active ibuprofen 600 MG tablet TAKE 1 TABLET BY MOUTH 3 TIMES DAILY. 90 tablet 023 Active FREESTYLE TEST STRIPS test stripIndicatio ns:Type 2 diabetes mellitus with hyperglycemia, without long-term current use of insulin ([facility]) CHECK BLOOD SUGAR ONCE EVERY DAY 50 strip 5 023 Active Blood Glucose Monitoring Suppl (ONE TOUCH ULTRA MINI) w/Device kit Test daily before all meals/snacks and once before bedtime. 1 kit 024 Active Continuous Glucose Ratchet Setter (FreeStyle Obie 2 [place]te) device Scan sensor every 8 hours 1 each 024 Active Diclofenac Sodium 1 % gel APPLY TOPICALLY TWICE A DAY NEEDED FOR PAIN 100 g 11 024 Active cetirizine (ZyrTEC) 10 MG tablet TAKE 1 TABLET BY MOUTH EVERY DAY 90 tablet 1 024 Active Trulicity 3 MG/0.5ML solution auto-injector INJECT ONE PEN (=3MG) SUBCUTANEOUSLY ONCE A WEEK 2 mL 4 025 Active oxybutynin XL (Ditropan XL) 5 MG 24 hr tablet Take 1 tablet (5 mg) by mouth Once per day. Do not crush, chew, or split. 30 tablet 11 025 2025 Active albuterol 108 (90 Base) MCG/ACT inhaler INHALE 2 PUFFS EVERY 4 HOURS IF NEEDED FOR WHEEZING. 18 g 3 025 Active losartan (Cozaar) 25 MG tablet TAKE 1 TABLET (25 MG) BY MOUTH ONCE PER DAY. 90 tablet 3 025 Active Continuous Glucose Sensor (FreeStyle Obie 2 Sensor) misc APPLY 1 SENSOR EVERY 14 DAYS 4 each 3 025 Active metFORMIN (Glucophage) 1000 MG tabletIndicati ons:Type 2 diabetes mellitus without complication, without long-term current use of insulin ([facility]) TAKE 1 TABLET (1000 MG) BY MOUTH WITH BREAKFAST AND WITH EVENING MEAL 180 tablet 3 025 Active BD Pen Needle Orig Ultrafine 29G X 12.7MM miscIndication s:Type 2 diabetes mellitus without complication, without long-term current use of insulin (HCC) USE 1 NEEDLE DAILY 100 each 3 025 Active allopurinol (Zyloprim) 100 MG tablet TAKE 1 TABLET BY MOUTH ONCE DAILY 90 tablet 3 025 Active glimepiride (Amaryl) 4 MG tabletIndicati ons:Type 2 diabetes mellitus with hyperglycemia, without long-term current use of insulin ([facility]) TAKE 1 TABLET BY MOUTH TWICE A DAY 180 tablet 1 025 Active atorvastatin (Lipitor) 40 MG tablet TAKE 1 TABLET (40 MG) BY MOUTH ONCE PER DAY. 90 tablet 3 025 Active gabapentin (Neurontin) 100 MG capsuleIndicat ions:Type 2 diabetes mellitus with hyperglycemia, without long-term current use of insulin ([facility]) TAKE 1 CAPSULE BY MOUTH EVERY DAY 60 capsule 025 Active Continuous Glucose Sensor (FreeStyle Obie 2 Plus Sensor) miscIndication s:Type 2 diabetes mellitus without complication, with long-term current use of insulin ([facility]) 1 each every 14 (fourteen) days. 2 each 025 Active Trulicity 3 MG/0.5ML solution auto-injectorI ndications:Typ e 2 diabetes mellitus without complication, without long-term current use of insulin ([facility]) INJECT 3 MG UNDER THE SKIN 1 (ONE) TIME PER WEEK. INJECT ONE PEN (=3MG) SUBCUTANEOUSLY ONCE A WEEK 2 mL 1 10/31/2 025 Active Lantus SoloStar 100 UNIT/ML pen INJECT 50 UNITS SUBCUTANEOUSLY AT BEDTIME 45 mL 5 Active omeprazole (PriLOSEC) [address] capsuleIndicat ions:Gastroeso phageal reflux disease without esophagitis Take 1 capsule (20 mg) by mouth before breakfast. Do not crush or chew. 30 capsule 11 025 2025 Active Diclofenac Sodium (Voltaren) 1 % gelIndications :Rotator cuff arthropathy of left shoulder Apply topically. 150 g Active amitriptyline (Elavil) 10 MG tabletIndicati ons:Insomnia, unspecified type Take 1 tablet (10 mg) by mouth at bedtime. 30 tablet 2 2025 Active celecoxib (CeleBREX) 200 MG capsuleIndicat ions:Rotator cuff arthropathy of left shoulder TAKE 1 CAPSULE BY MOUTH 2 TIMES DAILY. 60 capsule Active celecoxib (CeleBREX) 200 MG capsuleIndicat ions:Rotator cuff arthropathy of left shoulder Take 1 capsule (200 mg) by mouth 2 times daily. 60 capsule 025 2024 Discontinued Active Problems Problem Noted Date Diagnosed Date Bronchiectasis 11/20/2023 Hip pain 11/20/2023 Menopausal problem 11/20/2023 Mood disorder 11/20/2023 Multiple pulmonary nodules 11/20/2023 Palpitations 11/20/2023 Type 2 diabetes mellitus 11/20/2023 Mild intermittent asthma 11/20/2023 Solitary pulmonary nodule 10/03/2022 Type 2 diabetes mellitus wit hout complication, with long-term current use of insulin 09/02/2022 Hyperlipidemia 06/06/2022 Vitamin D deficiency 02/11/2018 Hammer toe 11/10/2017 Endometrial thickening on ultrasound 11/10/2017 Onychomycosis 11/10/2017 Resolved Problems Problem Noted Date Diagnosed Date Resolved Date Hyperglycemia due to type 2 diabetes mellitus 11/11/19 18 09/02/2022 Encounters Date Type Department Care Team Description 05/09/2025 3:30 PM EST Office Visit [facility] [address] [place] [address] [phone] Milvia Flowers NP Diarrhea of infectious origin (Primary Dx) 05/09/2025 Travel 05/06/2025 Telephone [facility] [address] [place] [address] Adore Oleary CNP Nurse Triage 05/01/2025 Refill [facility] [address] [place] [address] Adore Oleary CNP Rotator cuff arthropathy of left shoulder 04/06/2025 10:00 AM EST Office Visit [facility] [address] [place] [address] Adore Oleary CNP Type 2 diabetes mellitus without complication, without long-term current use of insulin (HCC) (Primary Dx); Hypertension, unspecified type; Gastroesophageal reflux disease without esophagitis; Rotator cuff arthropathy of left shoulder; Insomnia, unspecified type; Chronic tension-type headache, not intractable; Chronic venous insufficiency 04/06/2025 Patient Outreach [facility] [address] [place] [address] Adore Oleary CNP Care Coordination (CHW outreach for SDOH housing search-referral completed ) 04/06/2025 Travel 04/04/2025 Telephone [facility] [address] [place] [address] Adore Oleary CNP chart prep 04/04/2025 Telephone [facility] [address] [place] [address] Adore Oleary CNP Nurse Triage 04/03/2025 Refill [facility] [address] [place] [address] Amanda Le MD 04/01/2025 Refill [facility] [address] [place] [address] Amanda Le MD Type 2 diabetes mellitus without complication, without long-term current use of insulin (HCC) 03/09/2025 Refill [facility] [address] [place] [address] Amanda Le MD Type 2 diabetes mellitus without complication, with long-term current use of insulin (HCC) 02/16/2025 Refill [facility] [address] [place] [address] Amanda Le MD Type 2 diabetes mellitus with hyperglycemia, without long-term current use of insulin ([facility]) from Last 3 Months Immunizations Immunization Administration Dates Next Due Influenza Injectable Quadriv alant Preservative Free IIV4 MDCK 07/01/2019 Influenza, IIV3, injectable 07/01/2019,1 07/25/2014,07/07/2014,03/13,03/08/2011,02/27/2010 Pfizer Covid-19 Vaccine 12+ 09/13/2020 Pneumococcal Polysaccharide PPSV23 07/14/2013,,11/28/2011 Tdap 03/04/2023, 2,01/19/2009,01/19 Zoster, Recombinant 07/01/2019 Social History Tobacco Use Types Packs/Day Years Used Date Smoking Tobacco: Never Smokeless Tobacco: Never Tobacco Cessation:Counseling Given: Not Answered Alcohol Use Standard Drinks/Week Comments Never 0 (1 standard drink = 0.6 oz pur e alcohol) Depression Answer Date Recorded Patient Health Questionnaire-9 Score 4 04/06/2025 Patient Health Questionnaire-9 Score 4 04/06/2025 Last PHQ-9: Questionnaire Data Not on file 1 06/06/2024 Housing Stability Answer Date Recorded What is your housing situation today? I have darrel alcantar 04/06/[address] you li ve. Do you have problems with any of the following? None of the above 04/06/2025 Food Insecurity Answer Date Recorded Within the past 12 months, y ou worried that your food would run out before you got money to buy more: Sometimes True 2024 Within the past 12 months,th e food you bought just didn't last and you didn't have enough money to get more: Never True 04/06/2025 Transportation Answer Date Recorded In the past 12 months, has l ack of transportation kept you from medical appts, meetings, work or from getting things needed for daily living? Yes, it has kept me from medical appointments or getting medications. 04/06/2025 Utilities Answer Date Recorded In the past 12 months, has t he electric, gas, oil or water company threatened to shut off services in your home? Yes 04/06/2025 Depression Answer Date Recorded Patient Health Questionnaire-2 Score 0 04/06/2025 Internet Access Answer Date Recorded Internet Access Q1 Yes 04/06/2025 Internet Access Q2 Not on file 04/06/2025 Comments Unknown Sex and Gender Information Value Date Recorded Sex Assigned at Female 04/01/2022 10:22 AM EDT Legal Sex Female 10:22 AM EDT Gender Identity Female 04/01/2022 10:22 AM EDT Sexual Orientation Straight 04/01/2022 10 :22 AM EDT Last Filed Vital Signs Vital Sign Reading Time Taken Comments Blood Pressure 150/80 05/09/2025 3:53 PM EST Pulse 80 05/09/2025 3:53 PM EST Temperature 36.3 C (97.3 F) 05/09/2025 3:53 PM EST Respiratory Rate 20 05/09/2025 3:53 PM EST Oxygen Saturation 97% 05/09/2025 3:53 PM EST Inhaled Oxygen Concentration - - Weight 97.3 kg (214 lb 6.4 oz) 05/09/2025 3:53 P M EST Height 180.3 cm (5' 11 ) 05/09/2025 3:53 PM EST Body Mass Index 29.9 05/09/2025 3:53 PM EST Plan of Treatment Health Maintenance Due Date Last Done Comments CT Colonography 1961 Colonoscopy 1961 Colorectal Cancer Screening 1961 FIT DNA/Cologuard 1961 FIT 1961 FOBT 1961 HIV Screening 1961 Sigmoidoscopy 1961 Eye Exam 12/11/1971 Hepatitis C Screening 12/11/1979 RSV Patients and Patients Aged 60 years or older (1 - Risk 50-74 years 1-dose series) 12/11/2011 Pneumococcal Vaccine: 50+ Years (2 of 2 - PCV) 07/14/2014 07/14/2013, 07/14/2013, 11/28/2011 Zoster Vaccines (2 of 2) 08/26/2019 07/01/2019 Mammogram 10/26/2022 10/26/2020, 11/11/2017 Diabetes: Urine Protein Screening 03/20/2024 03/20/2023, 07/19/2021, 05/29/2020 Lipid Panel 03/20/2024 03/20/2023, 04/0 07/2022, 06/06/2022, Additional history exists COVID-19 Vaccine ( season) 2025 06/28/2021, 09/13/2020, 08/25/2020 Influenza Vaccine (#1) 2025 0, 07/01/2019, 05/24/2015, Additional history exists Diabetes: Hemoglobin A1C 10/04/2025 025, 07/29/2024, 03/05/2024, Additional history exists Cervical Cancer Screening 02/13/2026 HPV/Cotest 02/13/2026 02/13/2021 Pap Smear 02/13/2026 02/13/2021 Alcohol/Substance Use Screening 04/06/2026 04/06/2025 Depression Screening 04/06/2026 04/06/2025, 04/06/20 25 Diabetes: Foot Exam 04/06/2026 04/06/2025, 03/04/2023, 03/04/2023, Additional history exists Disability Screening 04/06/2026 04/06/2025 SDOH Screening 04/06/2026 04/06/2025 Tobacco Screening 05/09/2026 05/09/2025 DTaP/Tdap/Td Vaccines (5 - Td or Tdap) 03/04/2033 03/04/2023, 09/24/2011, 01/19/2009, Additional history exists HIB Vaccines Aged Out No longer eligi ble based on patient's age to complete this topic HPV Vaccines Aged Out No longer eligi ble based on patient's age to complete this topic Hepatitis A Vaccines Aged Out No long er eligible based on patient's age to complete this topic Hepatitis B Vaccines Aged Out No long er eligible based on patient's age to complete this topic IPV Vaccines Aged Out No longer eligi ble based on patient's age to complete this topic Meningococcal B Vaccine Aged Out No l onger eligible based on patient's age to complete this topic Meningococcal Vaccine Aged Out No bia tuan eligible based on patient's age to complete this topic RSV under 20 months Aged Out No longe r eligible based on patient's age to complete this topic Rotavirus Vaccines Aged Out No longer eligible based on patient's age to complete this topic Goals Goal Patient Goal Type Associated Problems Recent Progress Patient-Stated? Author Help patients manage their type 2 diabetes Care Plan Help patients manage their type 2 diabetes No Kristy Rosa Weekly blood pressure task Care Plan Weekly blood pressure task No Kristy Rosa Help patients manage their type 2 diabetes Care Plan Help patients manage their type 2 diabetes No Kristy Rosa Patient has chronic kidney disease Care Plan Patient has chronic kidney disease No Kristy Rosa Weekly blood pressure task Care Plan Weekly blood pressure task No Kristy Rosa Patient has chronic kidney disease Care Plan Patient has chronic kidney disease No Kristy Rosa Weekly blood pressure task Care Plan Weekly blood pressure task No Martins, Reji, EXCHANGE TROUBLE SHOOTER Weekly blood pressure task Care Plan Weekly blood pressure task No Martins, Reji, EXCHANGE TROUBLE SHOOTER Patient has chronic kidney disease Care Plan Patient has chronic kidney disease No Martins Reji, EXCHANGE TROUBLE SHOOTER Patient has chronic kidney disease Care Plan Patient has chronic kidney disease No Martins, Reji, EXCHANGE TROUBLE SHOOTER Procedures Procedure Name Priority Date/Time Associated Diagnosis Comments LEUKOCYTES STOOL QUALITATIVE Routine 05/15/2025 8:00 AM EST Diarrhea of infectious origin POCT GLYCATED HEMOGLOBIN, TOTAL Routine 04/06/2025 11:04 AM EST Type 2 diabetes mellitus without complication, without long-term current use of insulin ([facility]) POCT GLUCOSE Routine 04/06/2025 11:03 AM EST Type 2 diabetes mellitus without complication, without long-term current use of insulin ([facility]) ALBUMIN, RANDOM URINE W/CREATININE Routine 03/20/2023 10:50 AM EDT LIPID PANEL, STANDARD Routine 03/20/2023 10:45 AM EDT Type 2 diabetes mellitus without complication, unspecified whether terminal operations manager insulin use ([facility]) HPV MRNA E6/E7 Routine 02/13/2021 3:51 PM EDT THINPREP PAP Routine 02/13/2021 3:51 PM EDT MAMMOGRAM GENERIC Routine 10/26/2020 3:4 5 PM EDT from Last 3 Months or Most Recently Relevant to Health Maintenance Results * Leukocytes Stool Qualitative (05/15/2025 8:00 AM EST) Leukocytes Stool Qualitative NEGATIVE NEGATIVE [facility] Stool 05/15/2025 8:00 AM EST 05/16/2025 5:57 PM EST Milvia Flowers BRAKE REPAIR MECHANIC LAB BODY FLUIDS AND STOOLS ORDER UNIQUE Final Result [facility] [address] [place] [address] [phone] * (ABNORMAL) POCT A1c (04/06/2025 11:04 AM EST) Pathologist [facility] Hemoglobin A1C 6.4(A) 4.0 - 5.7 % QC Media Lot # Comment:[id number] Lot# Expiration Date Comment:09/23/2026 Blood 04/06/2025 11:0 4 AM EST Result [facility] POINT OF CARE TEST ENTER/ EDIT ORDERABLES Final Result * POCT glucose manually resulted (04/06/2025 11:03 AM EST) Pathologist [facility] Glucose Blood, POC 150 60 - 200 mg/dL QC Media Lot # Comment:[id number] Lot# Expiration Date Comment:07/10/2025 Blood Capillary blood specimen / Unknown 04/06/2025 11:03 AM EST Result [facility] POINT OF CARE TEST ENTER/ EDIT ORDERABLES Final Result * Albumin, Random Urine W/Creatinine (03/20/2023 10:50 AM EDT) Creatinine, Urine 101.00 mg/dL [facility] Microalbumin Urine 11.0 mg/L [facility] Microalbum Creatinine Ratio Ur 10.8 <30 ug/mg cr [facility] Comment:Albumin/Creatinine R atio Reference Ranges: Normal: < 30 ug/mg creatinine Microalbuminuria: 30 - 300 ug/mg creatinineClinical Albuminuria: > 300 ug/mg creatinine 03/20/2023 10:5 0 AM EDT 03/20/2023 2:09 PM EDT Amanda Le MD LAB URINE ORDERABLES Final Resul t Performing Organization Address [facility] de Phone Number [facility] [address] [place] [address] [phone] * (ABNORMAL) Lipid Panel, Standard (03/20/2023 10:45 AM EDT) Triglycerides 111 <150 mg/dL [facility] Comment:Desirable Triglyceri de: less than 150 mg/dLBorderline High Triglyceride 150-199 mg/dLHigh Triglyceride: 200-499 mg/dLVery High Triglyceride: greater than or equal to 5OO mg/dL Cholesterol 126 <200 mg/dL [facility] Comment:Desirable Cholestero l: less than 200 mg/dLBorderline High Cholesterol: 200-239 mg/dLHigh Cholesterol: greater than 239 mg/dL LDL Cholesterol Calculated 67 <100 mg/dL [facility] Comment:Desirable LDL: less than 100 mg/dLNear Optimal/Above Optimal LDL: 110- 129 mg/dLBorderline High LDL: 130-159 mg/dLHigh LDL: 160-189 mg/dLVery High LDL: greater than or equal to 190 mg/dL HDL Cholesterol 37(L) >40 mg/dL [facility] Comment:Desirable HDL: great er than 40 mg/dL Note: This HDL assay may give artificially low results in patients with liver disease. Blood Venous blood specimen / Unknown 03/20/2023 10:45 AM EDT 03/20/2023 2:10 PM EDT us Amanda Le MD LAB BLOOD ORDERABLES Final Resul t Performing Organization Address [facility] Co de Phone Number [facility] [address] [place] [address] [phone] * THINPREP PAP (02/13/2021 3:51 PM EDT) Clinical Information: None given [facility] COMMENT SEE COMMENT [facility] Comment: EXPLANATORY NOTE: The Pap is a screening test for cervical cancer. It is not a diagnostic test and is subject to false negative and false positive results. It is most reliable when a satisfactory sample, regularly obtained, is submitted with relevant clinical findings and history, and when the Pap result is evaluated along with historic and current clinical information. Absorption And Adsorption Engineer: SEE COMMENT [facility] Comment: RXB, CT(ASCP) CT screening location: [place] [address] Interpretation/Res ult: SEE COMMENT [facility] Comment: Negative for intraepithelial lesion or malignancy. Atrophic pattern; predominantly parabasal cells LMP: [facility] Prev. BX: NONE GIVEN [facility] Prev. PAP: NONE GIVEN [facility] SOURCE: None given [facility] Statement Of Adequacy: SATISFACTORY FOR EVALUATION [facility] 02/13/2021 3:51 PM EDT Fariba DUNLAP LAB PATHOLOGY ORDERABLES Final Result [facility] [address] * HPV mRNA E6/E7 (02/13/2021 3:51 PM EDT) HPV nRNA E6/E7 Not Detected Not Detected [facility] Comment: Methodology: Regional Agronomist-Mediated Amplification This assay detects E6/E7 viral messenger RNA (mRNA) from 14 high-risk HPV types (16,18,31,33,35,39,45,51,52,56,58,59,66,68). The analytical performance characteristics of this assay have been determined by [employer]. The modifications have not been cleared or approved by the FDA. This assay has been validated pursuant to the CLIA regulations and is used for clinical purposes. For additional information, please refer to http://education.Validus-IVC/faq/OPR692n4 (This link if provided for information/ educational purposes only.) 02/13/2021 3:51 PM EDT us Fariba Armstrong CNM LAB BLOOD ORDERABLES Clarice james Result [facility] [address] * Mammography Report 1 (10/26/2020 3:45 PM EDT) Anatomical Region Laterality Modality Breast Bilateral Mammography 10/26/2020 3:45 PM EDT Narrative 10/27/2020 3:47 PM EDT Refer to the Notes tab for result details [facility] Procedure: Mammography Report 1 Procedure Note ProviderLisa MD - 08/24/2022 Refer to the Notes tab for result details [facility] Procedure: Mammography Report 1 Amanda Le MD IMG BI PROCEDURES Final Result from Last 3 Months or Most Recently Relevant to Health Maintenance Additional Health Concerns Active Problems Noted Date Diagnosed Date Help patients manage their type 2 diabetes 05/06 Weekly blood pressure task 05/06/2025 Help patients manage their type 2 diabetes 05/06 Patient has chronic kidney disease 05/06/2025 Weekly blood pressure task 05/06/2025 Patient has chronic kidney disease 05/06/2025 Weekly blood pressure task 05/09/2025 Weekly blood pressure task 05/09/2025 Patient has chronic kidney disease 05/09/2025 Patient has chronic kidney disease 05/09/2025 [facility] [facility] Care Teams Benzol Still Operator Relationship Specialty Start Date End Date Adore Oleary CNP [address] [place] [address] [place] [address] PCP - General Family Medicine 03/29/25
--- OUTSIDE RECORDS SUMMARY | 2025-05-16 20:51 | XMS_ITS | Encounter Summary ---
Author Organization [employer] Address [address] [facility] [address] [place] [address] Care Team Providers Care Career Orientation Teacher Name Role Phone Amanda Le MD Primary Care Provider [phone] Adore Oleary CNP Primary Care Provider [phone] Reason for Visit * Reason Onset Date Comments Medication Question 01/27/2025 Encounter Details Date Type Department Care Team ([facility] Contact Info) Description 01/27/2025 Telephone [facility] [address] [place] [address] Amanda Le MD [address] [place], [place] [phone] Medication Question Social History Tobacco Use Types [...] encounter Miscellaneous Notes * Telephone Encounter - Yasmany Jim - 01/27/2025 3:18 PM EDT TC from [facility] reports patient is currently prescribed glimepiride (Amaryl) 4mg tablet twice daily for diabetes management. Upon review, patient reports taking the medication only once daily. Unclear if the provider team was aware of this deviation from prescribed dosing. Unsure if any medication adjustments were made based on the assumption of meds being taken as prescribed. documented in this encounter Plan of Treatment Not on file documented as of this encounter Visit Diagnoses Not on filedocumented in this encounter Additional Health Concerns Assessment Noted Time PHQ-9 Depression Total Score: 2 07/29/19 25 9:02 AM EST documented as of this encounter Care Teams Career Orientation Teacher Relationship Specialty Start Date End Date Amanda Le MD [address] [place] [address] PCP - General Family Medicine 11/02/19 03/28/25 Adore Oleary CNP [address] [place] [address] PCP - General Family Medicine 03/29/25 documented as of this encounter
--- OUTSIDE RECORDS SUMMARY | 2025-05-16 20:51 | XMS_ITS | Encounter Summary ---
Author Organization [employer] Address [address] [place] [address] [address] [place] [address] Care Team Providers Care Cna Pct Name Role Phone Amanda Le MD Primary Care Provider [phone] Adore Oleary CNP Primary Care Provider [phone] Encounter Details Date Type Department Care Team ([facility] st Contact Info) Description 09/03/2022 Orders Only [facility] [address] [place], [place] [phone] Amanda Le MD [address] [place] [address] Serum total bilirubin elevated (Primary Dx) Social History Tobacco Use Types Packs/Day Years [...] suspected to have Coronavirus/COVID-19? No / Unsure 09/02/2022 9:26 AM EDT documented as of this encounter Plan of Treatment Not on file documented as of this encounter Visit Diagnoses Diagnosis Serum total bilirubin elevated- Primary Disorders of bilirubin excretion documented in this encounter Additional Health Concerns Assessment Noted Time PHQ-9 Depression Total Score: 0 06/11/19 23 1:43 PM EST documented as of this encounter Care Teams Cna Pct Relationship Specialty Start Date End Date Amanda Le MD [address] [place] [phone] PCP - General Family Medicine 11/02/19 03/28/25 Adore Olaery CNP [address] [place] [id number] PCP - General Family Medicine 03/29/25 documented as of this encounter
--- OUTSIDE RECORDS SUMMARY | 2025-05-16 20:51 | XMS_ITS | Encounter Summary ---
Author Organization [employer] Address [address] [place] [address] 7 [place] [address] Care Team Providers Care Older Adult Social Work Specialist Name Role Phone Amanda Le MD Primary Care Provider [phone] Adore Oleary CNP Primary Care Provider [phone] Reason for Visit * Reason Comments Med Refill Encounter Details Date Type Department Care Team ([facility] st Contact Info) Description 12/30/2024 Refill [facility] CHC MED & PEDS [address] [place], [place] [phone] Amanda Le MD [address] [place] [address] Type 2 diabetes mellitus with hyperglycemia, without long-term current use of insulin ([facility]) Social History Tobacco Use Types Packs/Day Years [...] documented as of this encounter Care Teams Older Adult Social Work Specialist Relationship Specialty Start Date End Date Amanda Le MD [address] [place] [address] PCP - General Family Medicine 11/02/19 03/28/25 Adore Oleary CNP 505 [place] [address] PCP - General Family Medicine 03/29/25 documented as of this encounter
--- OUTSIDE RECORDS SUMMARY | 2025-05-16 20:51 | XMS_ITS | Encounter Summary ---
Author Organization [employer] Address [address] [facility] 7t [place] [address] Care Team Providers Care Immigration Consultant Name Role Phone Amanda Le MD Primary Care Provider [phone] Adore Oleary CNP Primary Care Provider [phone] Reason for Visit * Reason Onset Date Comments Nurse Triage 01/27/2025 Encounter Details Date Type Department Care Team ([facility] st Contact Info) Description 01/27/2025 Telephone [facility] MEDICINE [address] [place] [address] Amanda Le MD [address] [place], [place] [phone] Nurse Triage Social History Tobacco Use Types [...] Miscellaneous Notes * Telephone Encounter - Yasmany Fernandez - 01/27/2025 3:26 PM EDT Symptom: Urination Pain Outcome: Schedule an urgent appointment (within 1 hour) or talk to a nurse or provider soon Reason: Severe pain now The caller accepted this outcome. *contact pt directly Sammy speaking documented in this encounter Plan of Treatment Not on file documented as of this encounter Visit Diagnoses Not on filedocumented in this encounter Additional Health Concerns Assessment Noted Time PHQ-9 Depression Total Score: 2 07/29/19 25 9:02 AM EST documented as of this encounter Care Teams Immigration Consultant Relationship Specialty Start Date End Date Amanda Le MD [address] [place] [address] PCP - General Family Medicine 11/02/19 03/28/25 Adore Oleary CNP 505 [place] [address] PCP - General Family Medicine 03/29/25 documented as of this encounter
--- OUTSIDE RECORDS SUMMARY | 2025-05-16 20:52 | XMS_ITS | Encounter Summary ---
Author Organization [employer] Address [address] [place] [address] 7 [place] [address] Care Team Providers Care Fortune Teller Name Role Phone Amanda Le MD Primary Care Provider [phone] Adore Oleary CNP Primary Care Provider [phone] Reason for Visit * Reason Comments Med Refill Encounter Details Date Type Department Care Team ([facility] Contact Info) Description 10/18/2024 Refill [facility] CHC MED & PEDS [address] [place], [place] [phone] Amanda Le MD [address] [place], [place] [phone] Type 2 diabetes mellitus without complication, without long-term current use of insulin ([facility]) Social History Tobacco Use Types [...] Visit Diagnoses Diagnosis Type 2 diabetes mellitus without complication, without long-term current use of insulin (HCC) documented in this encounter Additional Health Concerns Assessment Noted Time PHQ-9 Depression Total Score: 2 07/29/19 9:02 AM EST documented as of this encounter Care Teams Fortune Teller Relationship Specialty Start Date End Date Amanda Le MD [address] [place] [address] PCP - General Family Medicine 11/02/19 03/28/25 Adore Oleary CNP [address] [place] [address] PCP - General Family Medicine 03/29/25 documented as of this encounter
--- OUTSIDE RECORDS SUMMARY | 2025-05-16 20:52 | XMS_ITS | Encounter Summary ---
Author Organization [employer] Address [address] [place] [address] 7t [place] [address] Care Team Providers Care Fire Warden Name Role Phone Amanda Le MD Primary Care Provider [phone] Adore Oleary CNP Primary Care Provider [phone] Reason for Visit * Reason Comments Med Refill Encounter Details Date Type Department Care Team ([facility] st Contact Info) Description 06/23/2024 Refill [facility] CHC MED & PEDS [address] [place], [place] [phone] Amanda Le MD [address] [place], [place] [phone] Type 2 diabetes mellitus with hyperglycemia, without long-term current use of insulin ([facility]) Social History Tobacco Use Types Packs/Day Years [...] documented as of this encounter Care Teams Fire Warden Relationship Specialty Start Date End Date Amanda Le MD [address] [place] [address] PCP - General Family Medicine 11/02/19 03/28/25 Adore Oleary CNP 505 [place] [address] PCP - General Family Medicine 03/29/25 documented as of this encounter
--- OUTSIDE RECORDS SUMMARY | 2025-05-16 20:52 | XMS_ITS | Encounter Summary ---
Author Organization [employer] Address [address] [facility] 7t [place] [address] Care Team Providers Care Sound Effects Person Name Role Phone Amanda Le MD Primary Care Provider [phone] Adore Oleary CNP Primary Care Provider [phone] Reason for Visit * Reason Onset Date Comments Durable Medical Equipment 09/30/2024 Encounter Details Date Type Department Care Team ([facility] st Contact Info) Description 09/30/2024 Telephone [facility] MEDICINE [address] [place] [address] Amanda Le MD [address] [place], [place] [phone] Durable Medical Equipment Social History Tobacco Use Types Packs/Day Years [...] encounter Miscellaneous Notes * Telephone Encounter - Aline Bolaños LPN - 10/04/2024 12:01 PM EDT Call was returned no answer ; pt can call [phone] for update. Tc from Daughter requesting status of DME RX. Callback number [phone] * Telephone Encounter - Raya Masterson - 10/04/2024 11:46 AM EDT Tc from Daughter requesting status of DME RX. Callback number [phone] * Telephone Encounter - Aline Bolaños LPN - 10/01/2024 11:48 AM EDT Rx generated and faxed to [facility]. [facility] Raised toilet seat without handles Shower chair with Handles Blood Preassure Monitor Contact Amada at [phone] * Telephone Encounter - Aline Bolaños LPN - 10/01/2024 11:44 AM EDT TC from [facility] with [facility] requesting DME script for Raised toilet seat without handles Shower chair with Handles Blood Preassure Monitor Contact Amada at [phone] * Telephone Encounter - Marcel Monaco - 09/30/2024 2:20 PM EDT TC from [facility] with [facility] requesting DME script for Raised toilet seat without handles Shower chair with Handles Blood Preassure Monitor Contact [facility]ada at [phone] documented in this encounter Plan of Treatment Not on file documented as of this encounter Visit Diagnoses Not on filedocumented in this encounter Additional Health Concerns Assessment Noted Time PHQ-9 Depression Total Score: 2 07/29/19 9:02 AM EST documented as of this encounter Care Teams Sound Effects Person Relationship Specialty Start Date End Date Amanda Le MD [address] [place] [address] PCP - General Family Medicine 11/02/19 03/28/25 Adore Oleary CNP [address] [place] [address] PCP - General Family Medicine 03/29/25 documented as of this encounter
--- OUTSIDE RECORDS SUMMARY | 2025-05-16 20:52 | XMS_ITS | Encounter Summary ---
Author Organization [employer] Address [address] [place] [address] 7 [place] [address] Care Team Providers Care Manager Of Program Name Role Phone Amanda Le MD Primary Care Provider [phone] Adore Oleary CNP Primary Care Provider [phone] Reason for Referral * Imaging (Routine) - Closed Specialty Diagnoses / Procedures Referred By Jake moody Referred To Contact Diagnoses Screening mammogram for breast cancer Procedures BI Mammogram Screening Bilateral Amanda Le MD [address] [place] [address] Phone: tel: fax: [facility] [address] [place] [address] Phone: tel: fax: Referral ID Status Reason Start Date Expiration Date Visits Re quested Visits Authorized [id number] Closed 07/29/2022 01/25/2023 1 1 Encounter Details Date Type Department Care Team (Late st Contact Info) Description 07/29/2022 Orders Only [facility] CHC MED & PEDS [address] [place], [place] [phone] Amanda Le MD [address] [place], [place] [phone] Screening mammogram for breast cancer (Primary Dx); Type 2 diabetes mellitus without complication, without long-term current use of insulin (CMS/HCC) Social History Tobacco Use Types Packs/Day Years [...] as of this encounter Plan of Treatment Scheduled Orders Name Type Priority Associated Diagnoses Orde r Schedule BI Mammogram Screening Bilateral Imaging Routine Screening mammogram for breast cancer Expected: 07/29/2022, Expires: 09/27/2023 documented as of this encounter Visit Diagnoses Diagnosis Screening mammogram for breast cancer- Primary Type 2 diabetes mellitus without complication, without long-term current use of insulin (HCC) documented in this encounter Additional Health Concerns Assessment Noted Time PHQ-9 Depression Total Score: 0 06/11/19 23 1:43 PM EST documented as of this encounter Care Teams Manager Of Program Relationship Specialty Start Date End Date Amanda Le MD [address] [place] [address] PCP - General Family Medicine 11/02/19 03/28/25 Adore Oleary CNP [address] [place] [address] PCP - General Family Medicine 03/29/25 documented as of this encounter
--- OUTSIDE RECORDS SUMMARY | 2025-05-16 20:52 | XMS_ITS | Encounter Summary ---
Author Organization [employer] Address [address] [place] [address] 7 [place] [address] Care Team Providers Care Mainspring Barrel Assembly Cleaner Name Role Phone Amanda Le MD Primary Care Provider [phone] Adore Oleary CNP Primary Care Provider [phone] Reason for Visit * Reason Comments Med Refill Encounter Details Date Type Department Care Team ([facility] Contact Info) Description 07/02/2022 Refill [facility] CHC MED & PEDS [address] [place], [place] [phone] Amanda Le MD [address] [place] [address] Type 2 diabetes mellitus with hyperglycemia, without long-term current use of insulin ([facility]) Social History Tobacco Use Types [...] PM EST documented as of this encounter Plan of Treatment Not on file documented as of this encounter Visit Diagnoses Diagnosis Type 2 diabetes mellitus with hyperglycemia, without long-term current use of insulin (HCC) documented in this encounter Additional Health Concerns Assessment Noted Time PHQ-9 Depression Total Score: 0 06/11/19 23 1:43 PM EST documented as of this encounter Care Teams Mainspring Barrel Assembly Cleaner Relationship Specialty Start Date End Date Amanda Le MD [address] [place] [address] PCP - General Family Medicine 11/02/19 03/28/25 Adore Oleary CNP [address] [place] [address] PCP - General Family Medicine 03/29/25 documented as of this encounter
--- OUTSIDE RECORDS SUMMARY | 2025-05-16 20:52 | XMS_ITS | Patient Health Record ---
Author Organization [facility] Address [address] [place] [address] Care Team Providers Care Professor Of English Name Role Phone Amanda Le Primary Care Provider Michelle Galvez [phone] Reason For Referral No Information Medications Medication SIG (Take, Route, Fr equency, Duration) Notes Start Date End Date Status Losartan Potassium A ctive Glimepiride Active Atorvastatin Calcium Active Lantus Active Trulicity Active Gabapentin Active metFORMIN HCl Active Encounters Encounter Location Date Provider Diagnosis [facility] [address] [place] [address] 08/24/2024 [facility] [address] [place] [address] 08/26/2024 Michelle Pedro [address] [address] 09/28/2024 Michelle Pedro Plan Of Treatment No Information Insurance Providers Payer Name Payer Address Payer Phone Subscriber Number Group Number Insured Name Patient Relationship to Insured Coverage Start Date Coverage End Date [facility] Medicare [id number] [address] [address] [place] [address] [id number] Geovanna Black Self - patient is the insured [facility] 04[address] [address] [place] [address] [phone] [id number] Geovanna Black Self - patient is the insured Medical (General) History Medical History History ICD Code Diabetic Joint implants/screws Surgical History Surgery Date(Month/Year) hip sx 2004
--- OUTSIDE RECORDS SUMMARY | 2025-05-16 20:52 | XMS_ITS | Encounter Summary ---
Author Organization [employer] Address [address] [place] [address] 7t [place] [address] Care Team Providers Care Manager Purchasing Name Role Phone Amanda Le MD Primary Care Provider [phone] Adore Oleary CNP Primary Care Provider [phone] Reason for Visit * Reason Comments Med Refill Encounter Details Date Type Department Care Team ([facility] st Contact Info) Description 06/08/2024 Refill [facility] CHC MED & PEDS [address] [place], [place] [phone] Amanda Le MD [address] [place], [place] [phone] Type 2 diabetes mellitus with hyperglycemia, without long-term current use of insulin ([facility]) Social History Tobacco Use Types Packs/Day [...] as of this encounter Care Teams Manager Purchasing Relationship Specialty Start Date End Date Amanda Le MD [address] [place] [address] PCP - General Family Medicine 11/02/19 03/28/25 Adore Oleary CNP [address] [place] [address] PCP - General Family Medicine 03/29/25 documented as of this encounter
--- OUTSIDE RECORDS SUMMARY | 2025-05-16 20:52 | XMS_ITS | Encounter Summary ---
Author Organization [employer] Address [address] [place] [address] 7 [place] [address] Care Team Providers Care Transport Analyst Name Role Phone Amanda Le MD Primary Care Provider [phone] Adore Oleary CNP Primary Care Provider [phone] Reason for Visit * Reason Comments Med Refill Encounter Details Date Type Department Care Team ([facility] st Contact Info) Description 10/03/2024 Refill [facility] CHC MED & PEDS [address] [place], [place] [phone] Amanda Le MD [address] [place] [address] Type 2 diabetes mellitus with hyperglycemia, without long-term current use of insulin ([facility]) Social History Tobacco Use Types [...] documented as of this encounter Care Teams Transport Analyst Relationship Specialty Start Date End Date Amanda Le MD [address] [place] [address] PCP - General Family Medicine 11/02/19 03/28/25 Adore Oleary CNP [address] [place] [address] PCP - General Family Medicine 03/29/25 documented as of this encounter
== END 2025-05-16 14:27 | disposition home or self-care (01) ==
LOC: HO.CHCLNP 14:26
PROVIDERS: Visit Provider Nurse Practitioner Family
DX: A09 Infectious gastroenteritis and colitis, unspecified (principal)
CPT/HCPCS: 82705; 89055